=== PATIENT | female | born 1950 | race African-American/Black ===

== ENCOUNTER 2016-08-14 08:50 | Day surgery (SDC) | payer BC ==
--- NOTE | ~2016-08-14 | EGD ---
EGD REPORT [facility] [address] [place] [id number] NAME: CHERRIE JASSO : 50 STATUS : REG [facility] [place] PAT#: [id number] AGE: 65 ADM/REG DATE : 08/14/16 MR#: [id number] REPORT SERV DATE: 08/14/16 DICTATED BY: JAILENE MURPHY DATE: 08/14/16 REPORT STATUS : Draft TRANSCRIBED BY: [facility] DATE: 08/14/16 [facility] Patient Name: Cherrie Jasso Date of : 1950 Attending MD: BRANDY MURPHY MD Procedure Date No Time: 08/14/2016 Procedure: Colonoscopy Indications: Screening for colorectal malignant neoplasm, This is the patient's first colonoscopy Referring MD: Bing BEAN MD Medicines: See the Anesthesia note for documentation of the administered medications Complications: No immediate complications. Estimated blood loss: Minimal. Procedure: Pre-Anesthesia Assessment: - ASA Grade Assessment: III - A patient with severe systemic disease. After I obtained informed consent, the scope was passed under direct vision. Throughout the procedure, the patient's blood pressure, pulse, and oxygen saturations were monitored continuously. The PCF [id number] was introduced through the anus and advanced to the terminal ileum. The ileocecal valve, appendiceal orifice, terminal ileum and rectum were photographed. The entire colon was examined. The colonoscopy was performed without difficulty. The patient tolerated the procedure well. The quality of the bowel preparation was adequate. Findings: The perianal and digital rectal examinations were normal. The terminal ileum appeared normal. Diffuse moderate inflammation characterized by congestion (edema) and erythema was found in the distal rectum. Biopsies were taken with a cold forceps for histology. Non-bleeding internal hemorrhoids were found during retroflexion and were Grade I (internal hemorrhoids that do not prolapse). No other significant abnormalities were identified in a careful examination of the remainder of the colon. Impression: - The examined portion of the ileum was normal. - Diffuse moderate inflammation was found in the distal rectum secondary to colitis. Biopsied. - Non-bleeding internal hemorrhoids. Recommendation: - Patient has a contact number available for EGD REPORT [address] [address] NAME: CHERRIE JASSO : [birth year] STATUS : REG [facility] [place] PAT#: [id number] AGE: 65 ADM/REG DATE : 08/14/16 MR#: [id number] REPORT SERV DATE: 08/14/16 DICTATED BY: JAILENE MURPHY DATE: 08/14/16 REPORT STATUS : Draft TRANSCRIBED BY: [employer] DATE: 08/14/16 emergencies. The signs and symptoms of potential delayed complications were discussed with the patient. Return to normal activities tomorrow. Written discharge instructions were provided to the patient. - Regular diet. - Discharge patient to home. - Continue present medications. - Repeat colonoscopy in 10 years for surveillance. Procedure Code(s): --- Professional --- 85465, Colonoscopy, flexible, proximal to splenic flexure; with biopsy, single or multiple Diagnosis Code(s): --- Professional --- K64.0, First degree hemorrhoids K52.9, Noninfective gastroenteritis and colitis, unspecified Z12.11, Encounter for screening for malignant neoplasm of colon CPT copyright 2013 [employer]. All rights reserved. The codes documented in this report are preliminary and upon ditcher review may be revised to meet current compliance requirements. BRANDY MURPHY MD 08/14/2016 11:03 AM This report has been signed electronically. Number of Addenda: 0 Note Initiated On: 08/14/2016 10:40 AM Scope Withdrawal Time 0 hours 8 minutes 12 seconds [id number] [place] [address]
[~2016-08-14 08:50] MED LIST: ALPHAGAN P0.1 % OPH; BREO ELLIPTA INH; CAT1 PO; EXFORGE HC4 PO; FIORICET OR; KDUR20 PO; LINZESS 145 M145 MCG PO; LOP100 PO; LOP50 PO; MAX25 PO; PREV30 PO; PRILO PO; PRIN20 PO; REM15 PO; X5 PO; XALAT OPH; ZYRTEC ALLGY10 MG PO
== END 2016-08-14 23:59 | disposition home or self-care (01) ==
LOC: DMU 08:50
PROVIDERS: Internal Medicine Gastroenterology
PROC: 0DBP8ZX Excision of Rectum, Via Natural or Artificial Opening Endoscopic, Diagnostic (ICD-10-PCS; principal; 2016-08-14 10:30)
DX: Z12.11 Encounter for screening for malignant neoplasm of colon (principal); K62.89 Other specified diseases of anus and rectum; K64.0 First degree hemorrhoids; K52.9 Noninfective gastroenteritis and colitis, unspecified; I10 Essential (primary) hypertension; J45.909 Unspecified asthma, uncomplicated; K27.9 Peptic ulcer, site unspecified, unspecified as acute or chronic, without hemorrhage or perforation; K21.9 Gastro-esophageal reflux disease without esophagitis; F41.9 Anxiety disorder, unspecified; Z98.41 Cataract extraction status, right eye; Z98.42 Cataract extraction status, left eye; Z96.1 Presence of intraocular lens; M10.9 Gout, unspecified; Z98.890 Other specified postprocedural states; Z90.89 Acquired absence of other organs; Z98.51 Tubal ligation status; Z85.41 Personal history of malignant neoplasm of cervix uteri; Z79.899 Other long term (current) drug therapy; Z79.51 Long term (current) use of inhaled steroids
CPT/HCPCS: 88305